=== PATIENT | female | born 1975 | race Caucasian/White ===

== ENCOUNTER 2017-12-09 10:59 | Emergency (ER) | payer OTHER ==
[2017-12-09 11:03] VITALS: BP 126/82
--- NOTE | 2017-12-09 12:40 | ER Document Report ---
ED Eye Complaint - General Chief Complaint: Eye Problem Stated Complaint: RIGHT EYE PAIN Time Seen by Provider: 12/09/17 11:28 Mode of Arrival: Ambulatory Information source: Patient TRAVEL OUTSIDE OF THE [place] IN LAST 30 DAYS: No - HPI Patient complains to provider of: RIGHT UPPER EYELID PAIN Onset: Yesterday Notes: Patient is here with complaints of right upper eyelid swelling and pain. She states that it slightly tender and swollen yesterday. When she woke up today her entire upper lid was swollen and the pain has increased. Patient denies any injury. She denies any eye drainage. She denies any pain to her actual eyeball. She denies any blurred or loss vision. Her only complaint is to upper eyelid pain. No fever. No abdominal pain. No nausea, vomiting, diarrhea. No chest pain or shortness of breath. No rash. She denies any other complaints at this time. - Related Data Allergies/Adverse Reactions: No Known Allergies Allergy (Unverified 12/09/17 11:24) Past Medical History - Social History Smoking Status: Current Every Day Smoker Chew tobacco use (# tins/day): No Frequency of alcohol use: Occasional Drug Abuse: None Family History: Reviewed & Not Pertinent Patient has suicidal ideation: No Patient has homicidal ideation: No Renal/ Medical History: Denies: Hx Peritoneal Dialysis Past Surgical History: Reports: Hx Section Review of Systems - Review of Systems -: Yes All other systems reviewed and negative Physical Exam - Vital signs Vitals: Temp Pulse Resp BP Pulse Ox 99.1 F 79 15 126/82 H 98 12/09/17 11:02 12/09/17 11:02 12/09/17 11:02 12/09/17 11:02 12/09/17 11:02 - Notes Notes: GENERAL: alert, cooperative, nontoxic, no distress. HEAD: normocephalic, atraumatic EYES: conjunctiva pink without discharge, right upper eyelid swelling noted. Tenderness to palpation along the margin of the right upper eye. There is mild redness to the upper eyelid and swelling to the entire upper eyelid. Pupils are equal round react to light. Extraocular muscles are normal with no pain with eye movement. I do not appreciate an obvious stye at this time. EARS: no external swelling, no external redness NOSE: atraumatic, no external swelling MOUTH/THROAT: mucous membranes moist and pink NECK: soft, supple, full range of motion, no meningismus. CHEST: no distress, lungs clear and equal throughout. No wheezing, rales, rhonchi. CARDIAC: regular rate and rhythm, no murmur, normal capillary refill, normal pulses. BACK: full range of motion, no CVA tenderness. EXTREMITIES: full range of motion of all extremities. No redness, no swelling. NEURO: alert and oriented 3, no focal deficits, full range of motion of all extremities. PYSCH: appropriate mood, affect. Patient is cooperative. SKIN: pink, warm, dry, no rash. - HEENT Visual acuity- Right eye: 20/25 Visual acuity- Left eye: 20/20 Visual acuity- Both eyes: 20/20 Corrective lenses worn: Yes Course - Re-evaluation Re-evalutation: 12/09/17 12:37 The patient is nontoxic appearing with stable vitals. She is here with complaints of right upper eyelid swelling. No injury. On exam she is noted to have swelling to the right upper eyelid. The eyelid is tender to palpation. It is tender specifically in one area with mild tenderness to the surrounding area. I do not see an obvious stye to the area, but the fact that she has one specific area that hurts the most, makes me think she may have a stye starting in this area. Due to the fact that the entire lid is slightly red and swollen, I will place her on antibiotics for potential early periorbital cellulitis. She has no pain with eye movement, she is afebrile, and I do not believe she has orbital cellulitis at this time. She denies any vision complaints. She denies any eyeball complaints. Globe exam is unremarkable. This point the patient will be discharged home on Augmentin as well as Ultram. She was instructed to continue doing warm compresses to the upper eyelid. Follow-up if this is not improving in the next 2 days, sooner for increasing pain, fever, blurred or loss vision, persistent vomiting, or for any further concerns. The patient is noted to have elevated blood pressure during today's emergency department visit. The patient was informed of this finding. The patient was instructed that this may be related to pre-hypertension and requires further evaluation with a primary care provider. The patient has no hypertensive symptoms at this time. The patient's emergency department workup and current diagnosis were explained to the patient and or family. Follow-up instructions were provided. Medications if prescribed were discussed. Instructions for when to return to the emergency department including specific worrisome symptoms were discussed with the patient and/or family. - Vital Signs Vital signs: Temp Pulse Resp BP Pulse Ox 99.1 F 79 15 126/82 H 98 12/09/17 11:02 12/09/17 11:02 12/09/17 11:02 12/09/17 11:02 12/09/17 11:02 Discharge - Discharge Clinical Impression: Periorbital cellulitis of right eye Condition: Stable Disposition: HOME, SELF-CARE Instructions: Family Physicians / Practices, Antibiotic Therapy ([facility]) Additional Instructions: Take medications as prescribed. Continue applying warm compresses to your upper lid. Follow-up if not better in the next 2 days, follow-up sooner for worsening pain, fever, swelling, blurred or loss vision, persistent vomiting, or for any further concerns. Your blood pressure was elevated during today's visit. Have this rechecked with your doctor. The medication you were prescribed today may cause drowsiness. Do not drive or operate heavy machinery while taking this medication. Prescriptions: Amox Tr/Potassium Clavulanate [Augmentin 875-125 Tablet] 1 tab PO BID 10 Days tablet Hydrocodone/Acetaminophen [Ivor 5-325 mg Tablet] 2 tab PO Q6H PRN #8 tab PRN Reason: Forms: Elevated Blood Pressure, Smoking Cessation Education Referrals: [facility] [Provider Group] - Follow up as needed BALBIR RYAN DO [ACTIVE STAFF] - Follow up as needed
== END 2017-12-09 12:48 | disposition home or self-care (01) ==
LOC: ER 10:59
DX: L03.213 Periorbital cellulitis (principal); H57.11 Ocular pain, right eye; R22.0 Localized swelling, mass and lump, head; F17.200 Nicotine dependence, unspecified, uncomplicated
CPT/HCPCS: 99283